=== PATIENT | female | born 1965 | race Caucasian/White ===

== ENCOUNTER 2019-12-16 09:14 | Outpatient (REF) | payer SELFPAY ==
[2019-12-17 10:03] LABS: Clarity Clear (Clear)
[2019-12-17 10:16] LABS: Bilirubin Color Interference (Negative); Blood Color Interference (Negative); Leukocyte Esterase Color Interference (Negative); Nitrite Color Interference (Negative); Urobilinogen Color Interference EU/dL (Up TO 0.2)
[2019-12-17 10:17] LABS: Glucose Color Interference mg/dL (Negative); Ketones Color Interference mg/dL (Negative)
[2019-12-17 10:29] LABS: Bacteria Few HPF (Negative); C & S Indicated? No/Sq. Contamination; Epithelial Cells Many HPF (Negative); WBC >50 HPF (0-5)
== END 2019-12-16 09:34 ==
LOC: LBN 09:14
PROVIDERS: PCP Internal Medicine; Visit Provider Internal Medicine
DX: R39.89 Other symptoms and signs involving the genitourinary system (principal)
CPT/HCPCS: 81003; 81015